=== PATIENT | male | born 1980 | race Caucasian/White ===

== ENCOUNTER 2022-07-07 17:02 | Emergency (ER) | payer SELFPAY ==
--- NOTE | ~2022-07-07 | CT_ITS ---
EXAMINATION: CT abdomen pelvis wo con DATE: 07/07/2022 22:05 INDICATION: Low abdominal pain. Emesis. TECHNIQUE: Computed tomography (CT) of the abdomen and pelvis was performed without intravenous contr ast. Automated exposure control and iterative reconstruction technique were employed. The dose-length product was 1403.60 mGy-cm. COMPARISON: None. FINDINGS: The visualized portions of the lung bases demonstrate mild atelectasis. No pleural effusion . The heart size is normal. No pericardial effusion. The liver, gallbladder, spleen, pancreas, adrena l glands, and left kidney are normal. There is a 9 mm cyst in right kidney. There is no urolithiasis. The prostate is mildly enlarged. There is a left inguinal hernia containing fat. There is a small ar ea of fat necrosis adjacent to the sigmoid colon. There are no dilated loops of bowel. The appendix i s normal. There are no pathologically enlarged lymph nodes. There is no free intraperitoneal fluid. T here is mild lumbar spondylosis. IMPRESSION: 1. No urolithiasis. 2. Left inguinal hernia containing fat. Reviewed, dictated and finalized at location A. T REPAIRER
[2022-07-07 17:57] VITALS: BP 138/85; PULSE 72; RESP 18; TEMP 36.7; O2SAT 100
[2022-07-07 20:45] VITALS: BP 114/76; PULSE 95; RESP 16; TEMP 36.6; O2SAT 98
[2022-07-07 20:54] LABS: Basophils Absolute Auto 0.1 K/mm3 (0.0-0.1); Basophils Percent Auto 0.3 % (0.2-1.2); Eosinophils Percent Auto 0.1 % (0-4.4); Hematocrit 51.5 % (42.0-52.0); Hemoglobin 17.9 g/dL (14.0-18.0); Immature Granulocyte Absolute 0.07 K/mm3 (0.00-0.031); Immature Granulocyte Percent A 0.4 % (0-0.5); Lymphocytes Absolute Auto 1.19 K/mm3 (0.9-3.2); Lymphocytes Percent Auto 6.9 % (18.3-44.2); Mean Corpuscular HGB Conc 34.8 g/dl (32-36); Mean Corpuscular Hemoglobin 31.2 pg (26-34); Mean Corpuscular Volume 89.9 fl (80-100); Mean Platelet Volume 10.6 fl (7.4-10.4); Monocytes Absolute Auto 0.9 K/mm3 (0.1-0.6); Monocytes Percent Auto 4.9 % (2.6-8.5); Neutrophils Percent Auto 87.4 % (45.5-73.1); Platelet Count Result 284 k/mm3 (150-375); Red Blood Count 5.73 M/mm3 (4.6-6.20); Red Cell Distribution Width 11.9 % (11.5-14.5); White Blood Count 17.2 K/mm3 (4.5-10.0)
[2022-07-07 21:04] LABS: Alanine Aminotransferase 38 U/L (6-50); Alkaline Phosphatase 106 U/L (38-126); Anion Gap 7 mmol/L (8-16); Aspartate Amino Transferase 27 U/L (17-59); Bilirubin,Total 0.8 mg/dL (0.2-1.3); Blood Urea Nitrogen 17 mg/dL (9-20); Calcium 9.6 mg/dL (8.4-10.2); Carbon Dioxide 29 mmol/L (22-30); Chloride 104 mmol/L (98-107); Estimated Glomerular Filt Rate > 60; Glucose 121 mg/dL (65-110); Lipase 71 U/L (23-300); Potassium 4.7 mmol/L (3.4-5.0); Sodium 140 mmol/L (137-145)
[2022-07-07 21:16] LABS: Appearance Urine Clear (Clear); Bilirubin Urine 1+ (Negative); Blood Urine 3+ (Negative); Color Urine Yellow (Yellow); Glucose Urine UA Negative (Negative); Ketones Urine Trace mg/dL (Negative); Leukocyte Esterase Ur Negative LEU/UL (Negative); Nitrate Urine Negative (Negative); Protein Urine 1+ mg/dL (Negative); Specific Grav Ur >= 1.030 (1.001-1.035); Urobilinogen Urine 0.2 mg/dL (<2.0); pH Urine 5.5 (5.0-9.0)
[2022-07-07 21:22] LABS: Mucus Urine Heavy /lpf; RBC Urine >75 /hpf (0-2); Squamous Epithelial Cell Urine Rare /hpf (Few); WBC Urine 0-3 /hpf
[2022-07-07 21:23] LABS: Add Urine Microscopic? YES
--- NOTE | 2022-07-07 21:55 | ED.ABDPAIN ---
HPI - Abdominal Pain General Chief Complaint: Abdominal Pain Stated Complaint: Abdominal Pain Time Seen by Provider: 07/07/22 21:43 History of Present Illness HPI narrative: 41-year-old male reports for colicky abdominal pain that started abruptly around 8 hours ago. Patient states he fell asleep feeling normal and woke up to severe abdominal pain. Since then the pain has been intermittent, mostly located around his lower abdomen and radiated to his testicles. He denies back pain. Denies history of kidney stones. Denies gross hematuria. He reports episodes of hot and cold flashes, nausea, 4 episodes of vomiting. Denies hematemesis, cough, congestion, fever, body aches. About 2 hours ago, patient states the pain suddenly went away. He states he is only urinated once since in the ED to give a urine sample, and the pain had already gone away prior to the urine sample being given. He states he did not feel like he passed the stone. He denies current testicular pain, testicular swelling, lesions or erythema. Denies dysuria, diarrhea, constipation. Related Data Allergies Allergy/AdvReac Type Severity Reaction Status Date / Time No Known Allergies Allergy Verified 07/07/22 21:39 Review of Systems Review of Systems: CONSTITUTIONAL: Denies fever, chills EYES: Denies visual changes, redness, or discharge. ENT: Denies rhinorrhea, congestion, sore throat, or otalgia. CARDIOVASCULAR: Denies chest pain, palpitations, or edema. RESPIRATORY: Denies cough or dyspnea. GASTROINTESTINAL: See HPI GENITOURINARY: Denies dysuria or hematuria. SKIN: Denies rash or itching. MUSCULOSKELETAL: Denies back pain, joint pain, or myalgia. NEUROLOGIC: Denies headache, numbness, dizziness, or weakness. PSYCHIATRIC: Denies anxiety or depression. Exam Narrative: GENERAL: Well-appearing, well-nourished, and in no acute distress. HEAD: Normocephalic, atraumatic. EYES: PERRLA and EOMI. ENT: Nares clear, no rhinorrhea or epistaxis. Mucous membranes moist. Oropharynx without tonsillar hypertrophy exudate or other lesions. NECK: Supple. No adenopathy or masses. CHEST: Clear to auscultation. No respiratory distress. No wheezes rales or rhonchi HEART: Regular rate and rhythm. No murmur heard. Normal peripheral pulses. ABDOMEN: Soft, nontender, nondistended, normal active bowel sounds. No rigidity, guarding, rebound. EXTREMITIES: Normal range of motion. No edema. SKIN: Warm, dry, no rash. NEURO: No focal deficits. Alert and oriented x3. PSYCH: Normal mood and affect. Course Course Emergency Course: 2149: I offered IV fluids, Zofran, pain medication to the patient. He is declining all of it at this time. Vital Signs Vital signs: Vital Signs Temperature 98.1 F 07/07/22 17:57 Pulse Rate 72 07/07/22 17:57 Respiratory Rate 18 07/07/22 17:57 Blood Pressure 138/85 07/07/22 17:57 Pulse Oximetry 100 07/07/22 17:57 Oxygen Delivery Room Air 07/07/22 17:57 Temperature 97.9 F 07/07/22 20:45 Pulse Rate 95 07/07/22 20:45 Respiratory Rate 16 07/07/22 20:45 Blood Pressure 114/76 07/07/22 20:45 Pulse Oximetry 98 07/07/22 20:45 Oxygen Delivery Room Air 07/07/22 17:57 MDM - Abdominal Pain MDM Narrative Medical decision making narrative: 41-year-old male reports for sudden onset colicky abdominal pain, nausea, vomiting that suddenly dissipated prior to my evaluation. Vitals are stable throughout visit, afebrile. Patient has not vomited while in the exam room during his stay. Hematology reveals leukocytosis of 17.2 with a left shift. Chemistries without significant findings. UA reveals large blood and RBCs and heavy mucus. CT A/P without contrast does not reveal urolithiasis, however it does reveal a left inguinal hernia containing fat, a 9 mm cyst in the right kidney, and the prostate is mildly enlarged. I offered IV fluids, Zofran, pain control to the patient however he declined. Upon reevaluation the patient, he is
== END 2022-07-07 23:45 | disposition home or self-care (01) ==
PROVIDERS: Emergency Medicine; Emergency Provider Physician Assistant
DX: R10.84 Generalized abdominal pain (principal); R31.29 Other microscopic hematuria; K40.90 Unilateral inguinal hernia, without obstruction or gangrene, not specified as recurrent
CPT/HCPCS: 36415; 74176; 80053; 81001; 83690; 85025; 99284